=== PATIENT | female | born 1980 | race Caucasian/White ===

== ENCOUNTER 2019-01-25 09:06 | Emergency (ER) | payer BC, OTHER ==
[2019-01-25 09:30] VITALS: BP 110/60
--- NOTE | 2019-01-25 09:39 | UC ---
Lower Extremity/Ankle HPI - HPI Summary HPI Summary: 38 yo male her for evaluation of right foot injury that occurred yesterday able to bear wt pain lateral foot and 5th toe hx bilateral foot surgery for talipes equinovarus. - History of Current Complaint Chief Complaint: UCLowerExtremity Stated Complaint: RIGHT FOOT INJURY Time Seen by Provider: 01/25/19 09:38 Hx Obtained From: Patient Hx Last Menstrual Period: 01/06/19 Onset/Duration: Sudden Onset Severity Initially: Severe Severity Currently: Severe Pain Intensity: 10 - if bearing wt while bare foot Pain Scale Used: 0-10 Numeric Aggravating Factor(s): Standing, Ambulation Alleviating Factor(s): Rest, Elevation Able to Bear Weight: Yes Feet (Multiple View): 1 - tender here, dorsum of foot swollen - Allergies/Home Medications Allergies/Adverse Reactions: Allergies Allergy/AdvReac Type Severity Reaction Status Date / Time clavulanic acid Allergy Severe Swelling Verified 01/25/19 09:32 acetaminophen [From Tylenol] Allergy mills Verified 01/25/19 09:32 tongue terfenadine [From Seldane] Allergy Hives Verified 01/25/19 09:32 Home Medications: Home Medications Levothyroxine TAB* [Synthroid TAB*] 125 mcg PO DAILY 01/25/19 [History Confirmed 01/25/19] PMH/Surg Hx/FS Hx/Imm Hx Previously Healthy: Yes - Surgical History Surgical History: Yes Surgery Procedure, Year, and Place: Multiple surgies on feet, gallbladder removal, tubal ligation - Family History Known Family History: Positive: Diabetes Negative: Cardiac Disease, Hypertension - Social History Alcohol Use: None Substance Use Type: None Smoking Status (MU): Light Every Day Tobacco Smoker Review of Systems All Other Systems Reviewed And Are Negative: Yes Constitutional: Positive: Negative Skin: Positive: Bruising Eyes: Positive: Negative ENT: Positive: Negative Respiratory: Positive: Negative Cardiovascular: Positive: Negative Gastrointestinal: Positive: Negative Genitourinary: Positive: Negative Motor: Positive: Negative Neurovascular: Positive: Negative Musculoskeletal: Positive: Arthralgia Neurological: Positive: Negative Psychological: Positive: Negative Physical Exam Triage Information Reviewed: Yes Appearance: Well-Appearing, No Pain Distress, Well-Nourished Vital Signs: Initial Vital Signs Temp 98.4 F 01/25/19 09:22 Pulse 78 01/25/19 09:22 Resp 16 01/25/19 09:22 BP 110/60 01/25/19 09:22 Pulse Ox 100 01/25/19 09:22 Vital Signs Reviewed: Yes Eyes: Positive: Conjunctiva Clear ENT: Positive: Hearing grossly normal. Negative: Nasal congestion, Nasal drainage, Trismus, Muffled voice, Hoarse voice Neck: Positive: Supple, Nontender, No Lymphadenopathy Respiratory: Positive: Lungs clear, Normal breath sounds, No respiratory distress, No accessory muscle use Cardiovascular: Positive: RRR, No Murmur Musculoskeletal: Positive: Other: - see image Neurological: Positive: Alert Psychological Exam: Normal Skin Exam: Normal Diagnostics - Radiology No standard instances Radiology Interpretation Completed By: Radiologist Summary of Radiographic Findings: Spiral fracture midshaft fifth metatarsal Lower Extremity Course/Dx - Differential Dx/Diagnosis Provider Diagnosis: Fracture of fifth metatarsal bone of right foot Discharge - Sign-Out/Discharge Documenting (check all that apply): Patient Departure All imaging exams completed and their final reports reviewed: Yes - Discharge Plan Condition: Stable Disposition: HOME Patient Education Materials: Foot Fracture in Adults (ED) Referrals: Carlos Alberto Thomas MD [Primary Care Provider] - Additional Instructions: see your orthopedist first available appt CAM boot rest elevate ibuprofen - Billing Disposition and Condition Condition: STABLE Disposition: Home
== END 2019-01-25 10:35 | disposition home or self-care (01) ==
LOC: UCCORT 09:06
DX: S92.351A Displaced fracture of fifth metatarsal bone, right foot, initial encounter for closed fracture (principal); Z88.0 Allergy status to penicillin; Z88.8 Allergy status to other drugs, medicaments and biological substances; X58.XXXA Exposure to other specified factors, initial encounter; Y92.9 Unspecified place or not applicable
CPT/HCPCS: 99212; G0463